=== PATIENT | male | born 1955 | race Asian ===

== ENCOUNTER 2022-09-23 10:59 | Day surgery (SDC) | payer MEDICARE ==
[~2022-09-23 10:59] MED LIST: DOCU100 PO; Glipizide Xl2.5 MG PO; Glucophage1000 MG PO; Nitrostat0.4 MG SL
[2022-09-23] MEDS ORDERED: ATOR40TA (11:40)
[2022-09-23] MEDS ORDERED: FARXIGA10 MG (11:41)
[2022-09-23 13:28] VITALS: BP 146/75
--- NOTE | 2022-09-23 13:35 | NUR ---
09/23/22 [facility] Eleazar Figueroa [employer] WERE USED PRIOR TO AND FOLLOWING THE PROCEDURE. THE PT VERBALIZED UNDERSTANDING OF DISCHARGE INSTRUCTIONS AND FOLLOW UP CARE.
== END 2022-09-23 13:20 | disposition home or self-care (01) ==
LOC: ORSCSDS 10:59
PROVIDERS: Internal Medicine Gastroenterology
PROC: 0DJD8ZZ Inspection of Lower Intestinal Tract, Via Natural or Artificial Opening Endoscopic (ICD-10-PCS; principal; 2022-09-23 12:00)
DX: Z12.11 Encounter for screening for malignant neoplasm of colon (principal); Z86.010 Personal history of colon polyps; Z80.0 Family history of malignant neoplasm of digestive organs; I10 Essential (primary) hypertension; E11.9 Type 2 diabetes mellitus without complications; Z79.899 Other long term (current) drug therapy; Z79.84 Long term (current) use of oral hypoglycemic drugs
CPT/HCPCS: 82947; J2704; J7120

== ENCOUNTER → 2023-02-16 | Outpatient (CLI) | payer MEDICARE ==
[~2023-02-16] MED LIST changes: +ATOR40TA; +FARXIGA10 MG
[2023-02-16 10:07] LABS: Alanine Aminotransfer (ALT/SGP 27 U/L (12-78); Albumin, Blood 3.9 g/dL (3.4-5.0); Albumin/Globulin Ratio 1.1 (0.8-1.8); Alk Phos 49 U/L (50-136); Anion Gap 6 mmol/L (6-16); Aspartate Aminotrans (AST/SGOT 21 U/L (12-37); Bilirubin, Total 0.7 mg/dL (0.1-1.0); Blood Urea Nitrogen 20 mg/dL (8-24); Bun/Creatinine Ratio 22.3 (12.0-20.0); CO2, Blood 26 mmol/L (21-32); Calcium, Blood 9.1 mg/dL (8.5-10.1); Chloride, Blood 108 mmol/L (98-108); Cholesterol 106 mg/dL (50-200); Globulin, Blood 3.6 g/dL (2.2-4.0); Glomerular Filtration Rate 92 (60-); Glucose, Blood 160 mg/dL (70-99); HDL Cholesterol 53 mg/dL (>39); LDL/HDL RATIO 0.6; Low Density Lipoprotein Chol 31 mg/dL (0-110); Potassium, Blood 3.8 mmol/L (3.5-5.5); Prostate Specific Antigen 0.735 ng/mL (0.000-4.000); Sodium, Blood 140 mmol/L (136-145); Total Protein, Blood 7.5 g/dL (6.4-8.2); Triglycerides 110 mg/dL (30-160); Very Low Density Lipoprot Chol 22 mg/dL (6-32)
== END | disposition home or self-care (01) ==
LOC: LAB SHORT 08:07 → LAB 08:07
PROVIDERS: Physician Assistant
DX: Z12.5 Encounter for screening for malignant neoplasm of prostate (principal); I10 Essential (primary) hypertension; E78.5 Hyperlipidemia, unspecified; E11.42 Type 2 diabetes mellitus with diabetic polyneuropathy
CPT/HCPCS: 36415; 80053; 80061; 82043; 83036; G0103

== ENCOUNTER 2024-09-06 08:57 | Day surgery (SDC) | payer OTHER ==
[~2024-09-06] VITALS: Ht 170.2 cm; Wt 66.6 kg
[~2024-09-06 08:57] MED LIST changes: -ATOR40TA; +ATOR40TA PO; +Balanced Salt Epinephrine Irrigation Solution 500 mL IR SCH; +Diazepam 5 MG Tab PO PRN; +Diazepam 5 MG Tab PO SCH; -FARXIGA10 MG; +FARXIGA10 MG PO; +LOSARTAN POTAS100 MG PO; +Lidocaine HCl/Pf 1% 5 ML VIAL XX SCH; +METF500 PO; +Moxifloxacin HCL 0.5 MG/0.1 ML 0.4MLSYR RIGHTEYE SCH; +Ondansetron 4 MG SoluTab MM PRN; +PHENYLEPHRINE\\TROPICAMIDE\\TETRACAINE OPHTHALMIC DILATING SOLN RIGHTEYE PRN; +Povidone-Iodine 450 DROP/30 ML Solution ONE; +Povidone-Iodine 450 DROP/30 ML Solution RIGHTEYE SCH; +Tetracaine HCl/Pf 0.5% Opth Soln 4 ml ONE
[2024-09-06] MEDS ORDERED: Diazepam 10 MG Tab ONE (08:58)
--- NOTE | 2024-09-06 09:49 | NUR ---
09/06/24 0949 Tariq Lau CALL LIGHT WITHIN REACH. TETRACAINE IN 0934 PLEDGETT IN AT 0937.
--- NOTE | 2024-09-06 10:07 | NUR ---
09/06/24 Michelle Smith [id number]
--- NOTE | 2024-09-06 10:23 | NUR ---
09/06/24 1023 PANCHO ALFONSO CAMPER ASSEMBLER IS ON THE PHONE WITH DR LADD. CONVERSING WITH PT
[2024-09-06 10:50] VITALS: BP 178/61
== END 2024-09-06 10:45 | disposition home or self-care (01) ==
LOC: ORSCSDS 08:57
PROVIDERS: Student in an Organized Health Care Education/Training Program
PROC: 08RJ3JZ Replacement of Right Lens with Synthetic Substitute, Percutaneous Approach (ICD-10-PCS; principal; 2024-09-06 10:00)
DX: E11.36 Type 2 diabetes mellitus with diabetic cataract (principal); H25.813 Combined forms of age-related cataract, bilateral; I10 Essential (primary) hypertension; E78.00 Pure hypercholesterolemia, unspecified; Z79.84 Long term (current) use of oral hypoglycemic drugs; Z79.899 Other long term (current) drug therapy
CPT/HCPCS: 82947; A9270; V2632

== ENCOUNTER 2024-09-13 08:17 | Day surgery (SDC) | payer OTHER ==
[~2024-09-13] VITALS: Ht 170.2 cm; Wt 66.7 kg
[~2024-09-13 08:17] MED LIST changes: +Moxifloxacin HCL 0.5 MG/0.1 ML 0.4MLSYR LEFTEYE SCH; -Moxifloxacin HCL 0.5 MG/0.1 ML 0.4MLSYR RIGHTEYE SCH; +NS 500 ML IV ONE; +PHENYLEPHRINE\\TROPICAMIDE\\TETRACAINE OPHTHALMIC DILATING SOLN LEFTEYE PRN; -PHENYLEPHRINE\\TROPICAMIDE\\TETRACAINE OPHTHALMIC DILATING SOLN RIGHTEYE PRN; +Povidone-Iodine 450 DROP/30 ML Solution LEFTEYE SCH; -Povidone-Iodine 450 DROP/30 ML Solution RIGHTEYE SCH
--- NOTE | 2024-09-13 09:12 | NUR ---
09/13/24 0912 Alysia Do INTERPRETATION PROVIDED BY CHANNELING MACHINE RUNNER # [id number] THROUGHOUT PREOP STAY
[2024-09-13] MEDS ORDERED: NS 500 ML IV ONE ×2 (09:22)
[2024-09-13] MEDS ORDERED: Midazolam HCl 1MG / ML 2ML Vial ONE (09:32)
[2024-09-13] MEDS ORDERED: Acetaminophen 500 MG Tab ONE (10:12)
[2024-09-13 10:22] VITALS: BP 145/65
--- NOTE | 2024-09-13 10:49 | NUR ---
09/13/24 Guerita9 PANCHO ALFONSO USED SPECIAL EVENTS DIRECTOR T/O CARE. 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 ALL QUESTIONS WERE ANSWERED WITH HELP OF SPECIAL EVENTS DIRECTOR.
== END 2024-09-13 10:45 | disposition home or self-care (01) ==
LOC: ORSCSDS 08:17
PROVIDERS: Student in an Organized Health Care Education/Training Program
PROC: 08RK3JZ Replacement of Left Lens with Synthetic Substitute, Percutaneous Approach (ICD-10-PCS; principal; 2024-09-13 10:00)
DX: E11.36 Type 2 diabetes mellitus with diabetic cataract (principal); H25.812 Combined forms of age-related cataract, left eye; Z96.1 Presence of intraocular lens; I10 Essential (primary) hypertension; E78.5 Hyperlipidemia, unspecified; Z79.899 Other long term (current) drug therapy; Z79.84 Long term (current) use of oral hypoglycemic drugs
CPT/HCPCS: 82947; A9270; J2250; J7040; V2632